=== PATIENT | female | born 1955 | race Caucasian/White ===

== ENCOUNTER 2018-05-11 00:24 | Observation (INO) | payer OTHER ==
[~2018-05-11] VITALS: Ht 160 cm; Wt 68.0 kg
[2018-05-11 01:24] LABS: ABSOLUTE BASOPHIL COUNT 0 /CUMM (0.0-0.2); ABSOLUTE EOSINOPHIL COUNT 0 /CUMM (0.0-0.7); ABSOLUTE GRANULOCYTE CT 13.2 /CUMM (1.4-6.5); ABSOLUTE LYMPH COUNT 0.9 /CUMM (1.2-3.4); ABSOLUTE MONOCYTE COUNT 0.5 /CUMM (0.10-0.60); BASOPHIL % 0.2 % (0.0-2.0); EOSINOPHIL % 0 % (0-5); MEAN CORPUSCULAR HGB 33.2 PG (27.0-31.0); MEAN CORPUSCULAR HGB CONC 34.7 G/DL (33.0-37.0); MEAN CORPUSCULAR VOLUME 95.6 FL (81.0-99.0); MEAN PLATELET VOLUME 8.1 FL (7.4-10.4); PLATELET COUNT 271 /CUMM (130-400); RBC DISTRIBUTION WIDTH 12.7 % (11.5-14.5); RED BLOOD CELL CT 4.19 /CUMM (4.20-5.40); WHITE BLOOD CELL COUNT 14.6 /CUMM (4.8-10.8)
[2018-05-11 01:32] LABS: GRANULOCYTE % 90.7 % (42.2-75.2)
--- NOTE | 2018-05-11 01:51 | ED GI/GU/ABDOMINAL COMPLAINT ---
History of Present Illness General Chief Complaint: Abdominal Pain/Flank Pain Stated Complaint: ? ABD PAIN X'S FEW HRS +N/V Source: patient, family, old records Exam Limitations: no limitations Vital Signs & Intake/Output Vital Signs & Intake/Output Vital Signs Date Time Temp Pulse Resp B/P B/P Pulse O2 O2 Flow FiO2 Mean Ox Delivery Rate 05/11 0531 98.5 85 18 119/72 96 Room Air 05/11 0100 98.6 05/11 0058 99 Room Air 05/11 0054 68 18 135/91 99 Room Air Allergies Coded Allergies: No Known Allergies (05/11/18) Triage Note: TRIAGE: PATIENT TO ER FROM HOME REPORTING 9/10 UPPER MIDDLE ABDOMEN PAIN "LIKE A MUSCLE STRAIN" S/P CARRYING GROCERIES APPROX 4PM, ATE DINNER AND REPORTS S/P DINNER +NAUSEA W/ VOMITTING X6. PATIENT SHAKY THROUGHOUT TRIAGE. TOOK TUMS AND PEPTO W/O RELIEF, "I THREW IT UP." PATIENT HX BREAST CA W/ R ARM RESTRICTION, RESTRICTED BAND APPLIED. Triage Nurses Notes Reviewed? yes LMP (ages 10-50): post menopausal ? n Is pt currently ? No Onset: Just prior to arrival Duration: hour(s):, constant, getting worse Timing: recent history Quality/Severity: cramping, severe, vomiting Location: epigastric Radiation: no radiation Activities at Onset: rest Prior Abdominal Problems: none Past Sexual History: Unobtainable at this time Modifying Factors: Worsens With: eating. Associated Symptoms: abdominal pain, loss of appetite, nausea/vomiting HPI: Several hours prior to admission patient complains of crampy epigastric pain moderate to severe associated with nausea vomiting nonradiating. She denies fever chills diarrhea chest pain cough shortness of breath headache dysuria rash bleeding Past History Travel History Traveled to [place] past 21 day No Medical History Any Pertinent Medical History? see below for history Neurological: NONE EENT: NONE Cardiovascular: hyperlipidemia Respiratory: NONE Gastrointestinal: NONE Hepatic: NONE Renal: NONE Musculoskeletal: LYME DISEASE Psychiatric: NONE Endocrine: NONE Blood Disorders: NONE Cancer(s): breast cancer, L ARM RESTRICTED Surgical History Surgical History: non-contributory Psychosocial History What is your primary language Latvian Tobacco Use: Refused to answer Family History Hx Contributory? No Review of Systems Review of Systems Constitutional: Reports: no symptoms. EENTM: Reports: no symptoms. Respiratory: Reports: no symptoms. Cardiovascular: Reports: no symptoms. GI: Reports: see HPI, abdominal pain, nausea, vomiting. Genitourinary: Reports: no symptoms. Musculoskeletal: Reports: no symptoms. Skin: Reports: no symptoms. Neurological/Psychological: Reports: no symptoms. Hematologic/Endocrine: Reports: no symptoms. Immunologic/Allergic: Reports: no symptoms. All Other Systems: Reviewed and Negative Physical Exam Physical Exam General Appearance: well developed/nourished, alert, awake, anxious, severe distress Head: atraumatic, normal appearance Eyes: Bilateral: normal appearance, PERRL, EOMI, normal inspection. Ears, Nose, Throat, Mouth: hearing grossly normal, moist mucous membrane Neck: normal inspection, supple, full range of motion, normal alignment, no midline tenderness Respiratory: normal breath sounds, chest non-tender, no respiratory distress, quiet respiration, lungs clear Cardiovascular: regular rate/rhythm, normal peripheral pulses, norml femoral pulses equa Peripheral Pulses: 4+ carotid (R), 4+ carotid (L) Gastrointestinal: normal bowel sounds, soft, no organomegaly, tenderness Back: normal inspection, normal range of motion Extremities: normal range of motion, no ligament instability Neurologic/Psych: no motor/sensory deficits, awake, alert, oriented x 3, normal gait, normal mood/affect, pickle processor II-XII nml as tested Skin: intact, normal color, warm/dry Core Measures ACS in differential dx? No Sepsis Present: No Sepsis Focused Exam Completed? No Progress Differential Diagnosis: appendicitis, biliary colic, cholecystitis, diverticulitis, gastritis Plan of Care: Orders Procedure Date/time Status CBC WITHOUT DIFFERENTIAL 05/12 0600 Active BASIC ELECTROLYTES PLUS BUN&CR 05/12 0600 Active Nothing by Mouth 05/11 B Active Pathway - chart 05/11 0611 Active Patient Data 05/11 0608 Active Code Status 05/11 0608 Active URINALYSIS 05/11 0105 Active TROPONIN LEVEL 05/11 0105 Complete LIPASE 05/11 0105 Complete COMPREHENSIVE METABOLIC PANEL 05/11 0105 Complete CBC WITHOUT DIFFERENTIAL 05/11 0105 Complete EKG 05/[address] in observation 05/11 UNK Active VTE Mechanical Prophylaxis 05/11 UNK Active Vital Signs 05/11 UNK Active Intake & Output 05/11 UNK Active Activity/Ambulation 05/11 UNK Active Current Medications Sig/Keena Start time Last Medication Dose Stop Time Status Admin Heparin Sodium 5,000 UNIT Q8 05/11 1400 UNVr (Porcine) Acetaminophen 650 MG Q6PRN PRN 05/11 0615 UNVr (Tylenol) Ampicillin Sodium/ 1,500 MG Q6 05/11 0615 UNVr 05/11 Sulbactam Sodium 0643 (Unasyn) Sodium Chloride 100 ML (Normal Saline 0.9%) Dextrose/Sodium 1,000 ML .Q8H 05/11 0615 UNVr 05/11 Chloride 0643 (D5-Normal Saline) Ondansetron HCl 4 MG Q6P PRN 05/11 0615 UNVr (Zofran) Laboratory Tests 05/11/18 0110: Anion Gap 17 H, Estimated GFR > 60, BUN/Creatinine Ratio 17.1, Glucose 134 H, Calcium 9.7, Total Bilirubin 0.6, AST 27, ALT 34, Alkaline Phosphatase 87, Troponin I < 0.01, Total Protein 7.2, Albumin 4.3, Globulin 2.9, Albumin/ Globulin Ratio 1.5, Lipase 58, CBC w Diff MAN DIFF ORDERED, RBC 4.19 L, MCV 95.6, MCH 33.2 H, MCHC 34.7, RDW 12.7, MPV 8.1, Gran % 90.7 H, Lymphocytes % 6.0 L, Monocytes % 3.1, Eosinophils % 0, Basophils % 0.2, Absolute Granulocytes 13.2 H, Segmented Neutrophils 87 H, Band Neutrophils 1, Absolute Lymphocytes 0.9 L, Lymphocytes 7 L, Monocytes 4, Absolute Monocytes 0.5, Absolute Eosinophils 0, Basophils 1, Absolute Basophils 0, Platelet Estimate ADEQUATE, Polychromasia 1+, Poikilocytosis 2+, Ovalocytes 1+, Stomatocytes 1+, Fld Total RBCs Counted 100 Diagnostic Imaging: Viewed by Me: CT Scan. Discussed w/RAD: CT Scan. Radiology Impression: 1. Fluid-filled, dilated appendix though without appreciable inflammatory change at this time. This could reflect a mucocele of the appendix, although in the proper clinical setting changes of an early appendicitis cannot be excluded. 2. Colonic diverticulosis. Initial ED EKG: normal axis, normal intervals, normal p-waves, normal QRS complex, normal sinus rhythm, no ST T wave changes Rhythm Strip: normal sinus rhythm Comments: D/W Dr. Friidman, surgical PA Departure Departure Disposition: STILL A PATIENT Condition: Stable Clinical Impression Primary Impression: Appendicitis Secondary Impressions: Abdominal pain Qualifiers: Abdominal location: right lower quadrant Qualified Code: R10.31 - Right lower quadrant pain Leukocytosis, unspecified Nausea and vomiting in adult patient Referrals: Emily WOOD,Michael Cortés (PCP/Family) Departure Forms: Customer Survey General Discharge Information Admission Note Spoke With: Kumar Vicente DO Documentation of Exam: Documentation of any treatments & extenuating circumstances including Concerns Regarding Discharge (functional status, medication knowledge or non-compliance, living conditions, etc.) that warrant an admission rather than observation: Nothing by mouth IV antibiotics IV fluids serial lab exam medication adjustment surgical evaluation and tingling care discharge planning
--- NOTE | 2018-05-11 02:59 | CT SCAN REPORT ---
EXAMINATION: CT ABDOMEN AND PELVIS WITH CONTRAST CLINICAL INFORMATION: Epigastric pain, nausea/vomiting COMPARISON: None TECHNIQUE: Multidetector volumetric imaging was performed of the abdomen and pelvis following IV administration of 95 mL of Optiray 320 intravenous contrast. Sagittal and coronal reformatted images were obtained on the technologist's workstation. DLP: 269.58 mGy-cm FINDINGS: LUNG BASES: The visualized lung bases are unremarkable. LIVER, GALLBLADDER, AND BILIARY TREE: The liver is normal in size, shape, and attenuation. No focal hepatic lesion or biliary ductal dilatation is present. The gallbladder is unremarkable with no evidence of radiopaque gallstones, gallbladder wall thickening, or obvious pericholecystic inflammatory changes. PANCREAS: Unremarkable. SPLEEN: Unremarkable. ADRENAL GLANDS: Unremarkable. KIDNEYS AND URETERS: The kidneys are normal in size, shape, and attenuation. No hydronephrosis, hydroureter, or calculi seen. No perinephric stranding. BLADDER: Unremarkable. GASTROINTESTINAL TRACT: There is scattered colonic diverticulosis without evidence of diverticulitis. Assessment for wall thickening in some segments of the colon is limited due to luminal collapse, though no significant pericolonic stranding is seen to strongly suggest a colitis. No evidence of bowel obstruction. The appendix is fluid-filled and dilated to 0.9 cm in diameter in the anterior right lower quadrant as seen on axial image 56/89 and coronal image 33. No significant associated periappendiceal inflammation. No free fluid or free air is seen. ABDOMINAL WALL: There is a small lobulated region of fluid attenuation in the left groin, which may reflect a small amount of fluid within a femoral hernia. LYMPH NODES: Normal. VASCULAR: Unremarkable. PELVIC VISCERA: Unremarkable. OSSEOUS STRUCTURES: Mild scattered degenerative endplate changes are present spine. IMPRESSION: 1. Fluid-filled, dilated appendix though without appreciable inflammatory change at this time. This could reflect a mucocele of the appendix, although in the proper clinical setting changes of an early appendicitis cannot be excluded. 2. Colonic diverticulosis.
--- NOTE | 2018-05-11 06:13 | History & Physical Pre-Op ---
See Addendum General Information and HPI History of Present Illness: 62F presents to ED with abd pain/n/v that began last evening around 6pm. She went out to eat for sinner though did not eat much due to lack of appetite and abd discomfort. Pain started in epigastric region, but now is feeling some discomfort in rlq. +n/v at home, none in ED. Denies fever/chills, no cp/sob. 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 Allergies/Medications Allergies: Coded Allergies: No Known Allergies (05/11/18) Past History Medical History Neurological: NONE EENT: NONE Cardiovascular: hyperlipidemia Respiratory: NONE Gastrointestinal: NONE Hepatic: NONE Renal: NONE Musculoskeletal: LYME DISEASE Psychiatric: NONE Endocrine: NONE Blood Disorders: NONE Cancer(s): breast cancer (sp r lumpectomy, sn bx, RT) Surgical History Pertinent Surgical History: r lumpectomy. 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 procedure Past Family/Social History Psychosocial History Smoking Status: Never Smoked Illicit Drug Use: denies illicit drug use Exam & Diagnostic Data Last 24 Hrs of Vital Signs/I&O Vital Signs Date Time Temp Pulse Resp B/P B/P Pulse O2 O2 Flow FiO2 Mean Ox Delivery Rate 05/11 0531 98.5 85 18 119/72 96 Room Air 05/11 0100 98.6 05/11 0058 99 Room Air 05/11 0054 68 18 135/91 99 Room Air Intake & Output 05/11 0800 05/11 0000 05/10 1600 Intake Total Output Total Balance Patient 148 lb Weight Weight Reported by Patient Measurement Method Physical Exam: gen- nad card-s1s2 rrr pulm- ctab abd- ttp rlq, ttp epigastric, soft, nd, no r/g, +bs ext- calves soft nt Last 24 Hrs of Labs/Jack: Laboratory Tests 05/11/18 0110: Anion Gap 17 H, Estimated GFR > 60, BUN/Creatinine Ratio 17.1, Glucose 134 H, Calcium 9.7, Total Bilirubin 0.6, AST 27, ALT 34, Alkaline Phosphatase 87, Troponin I < 0.01, Total Protein 7.2, Albumin 4.3, Globulin 2.9, Albumin/ Globulin Ratio 1.5, Lipase 58, CBC w Diff MAN DIFF ORDERED, RBC 4.19 L, MCV 95.6, MCH 33.2 H, MCHC 34.7, RDW 12.7, MPV 8.1, Gran % 90.7 H, Lymphocytes % 6.0 L, Monocytes % 3.1, Eosinophils % 0, Basophils % 0.2, Absolute Granulocytes 13.2 H, Segmented Neutrophils 87 H, Band Neutrophils 1, Absolute Lymphocytes 0.9 L, Lymphocytes 7 L, Monocytes 4, Absolute Monocytes 0.5, Absolute Eosinophils 0, Basophils 1, Absolute Basophils 0, Platelet Estimate ADEQUATE, Polychromasia 1+, Poikilocytosis 2+, Ovalocytes 1+, Stomatocytes 1+, Fld Total RBCs Counted 100 Assessment/Plan Assessment/Plan: A- 62F with likely early appendicitis, wbc 14, otherwise stable. P- unasyn npo home meds dvt ppx dr quinn to see As Ranked By This Provider Problem List: 1. Appendicitis
[2018-05-11] MEDS ORDERED: ATORVASTATIN CA10 M1 PO (08:13)
[2018-05-11] MEDS ORDERED: VITAMIN B-121000 MC3 PO (08:14)
[2018-05-11] MEDS ORDERED: CALCIUM 500 +1 EAC5 PO (08:14)
[2018-05-11] MEDS ORDERED: DAILY MULTIPLE1 EACH PO (08:15)
[2018-05-11 09:34] VITALS: BP 120/64
[2018-05-11 14:13] VITALS: BP 110/54
--- NOTE | 2018-05-11 16:03 | Operative Report ---
Operative/Inv Procedure Report Surgery Date: 05/11/18 Name of Procedure: Laparoscopic appendectomy Pre-Operative Diagnosis: Acute appendicitis Post-Operative Diagnosis: Same Estimated Blood Loss: less than 50ml Surgeon/Line Construction Supervisor: Kumar Vicente DO Anesthesia: general endotracheal tube IV Fluids: 500 cc Drains: None Specimens: Appendix Complications: None Condition: Stable Operative Indication: This is a 62-year-old female presented to the emergency room with abdominal pain. After appropriate workup was completed the patient was diagnosed with appendicitis. A laparoscopic possible open appendectomy was discussed in detail. All risks including but not limited to bleeding, infection, and injury to surrounding bowel were discussed in detail. The patient understood everything and decided to proceed. Operative/Procedure Note Note: The patient was brought to the operating room and placed on the table in supine position. Venodyne stockings were placed and adequate general endotracheal anesthesia was obtained. The patient was prepped and draped in standard surgical fashion. Began the procedure by making a 2 cm transverse incision in the infraumbilical crease. Incision was carried down to the fascia. Once the fascia was clearly visualized it was picked up between 2 Scout clamps and divided in the midline. Once we entered the peritoneum 2 stay 0 Vicryl sutures were placed on each side and a 12 mm blunt port was inserted. The abdominal cavity was insufflated to 15 mmHg. And a 10 mm 30 laparoscope was introduced. Upon initial examination no obvious gross pathology was seen, some hyperemia and inflammatory reaction was noted in the right lower quadrant. Accessory trocars were placed, both 5 mm, one in the left lower quadrant and one suprapubic. Ascending colon was identified and traced proximally, terminal ileum was identified, and we did note the appendix anteriorly. The base of the appendix was identified and appeared healthy. Distal appendix was ok as well but the midportion of the appendix was dilated and suppurative. Using blunt dissection and harmonic scalpel the appendix was carefully dissected away from surrounding structures. Once the appendix was away from the omentum and the sidewall the mesoappendix was divided using Harmonic scalpel maintaining hemostasis until the appendiceal base was clearly visualized and freely up in the air. At that point we switched to a 5 mm laparoscope and a 45 mm parry Endo SUYAPA load was inserted and the base was transected. The appendix was placed in an Endobag and removed through the umbilical trocar site. The abdominal cavity was reinsufflated and we switched back to a 10 mm laparoscope. Staple line was examined and no bleeding was noted. No other abnormalities were noted. The pelvis and the right lower quadrant were irrigated until clear. All ports were removed under direct visualization, no obvious bleeding was noted. The umbilical trocar site was closed using 0 Vicryl suture. The skin was closed using 4-0 Monocryl. Steri-Strips and dressings were placed. The patient was successfully extubated and transferred to the recovery room in stable condition. The patient tolerated procedure well with no complications. Findings: Acute suppurative mid portion of the appendix, no perforation
[2018-05-11] MEDS ORDERED: PERCOCET 5-3251 EACH PO (16:14)
--- NOTE | 2018-05-11 16:18 | Patient Discharge Instructions ---
Discharge Instructions General Discharge Information You were seen/treated for: Acute appendicitis You had these procedures: Laparoscopic appendectomy Watch for these problems: Worsening abdominal pain, nausea, vomiting, fever, flulike illness, redness or drainage around the wounds No bath, but you may shower: Yes Other wound care: Keep the dressings in place for the next 3 days. You may replace it with Band- Aids. You may shower, no bath. Steri-Strips stay on until they fall off Special Instructions: Take Percocet as needed for pain. You may take Motrin or Advil as well. Do not take any Tylenol if you are taking Percocet however you may take Tylenol instead of Percocet for pain Diet Continue normal diet: Yes Recommended Diet: Regular Activity Full Activity/No Limits: No Activity Self Limited: Yes Pounds, do NOT lift more than: 10 Acute Coronary Syndrome Inclusion Criteria At DC or during hospital stay patient has or had the following: ACS DIAGNOSIS No Discharge Core Measures Meds if any: Prescribed or Continued at Discharge Meds if any: NOT Prescribed or Continued at Discharge Congestive Heart Failure Inclusion Criteria At DC or during hospital stay patient has or had the following: CHF DIAGNOSIS No Discharge Core Measures Meds if any: Prescribed or Continued at Discharge Meds if any: NOT Prescribed or Continued at Discharge Cerebrovascular accident Inclusion Criteria At DC or during hospital stay patient has or had the following: CVA/TIA Diagnosis No Discharge Core Measures Meds if any: Prescribed or Continued at Discharge Meds if any: NOT Prescribed or Continued at Discharge Venous thromboembolism Inclusion Criteria VTE Diagnosis No VTE Type NONE VTE Confirmed by (Test) NONE Discharge Core Measures - Per Current guidelines, there needs to be overlap - treatment for the first 5 days of Warfarin therapy. - If discharged on Warfarin prior to 5 days of - overlap therapy, the patient will need to be - assessed for post discharge needs including - *Post discharge parental anticoagulation - *Warfarin and/or parental anticoagulation education - *Follow up date to check INR post discharge At least 5 days overlap therapy as Inpatient No Meds if any: Prescribed or Continued at Discharge Note: Overlap Therapy is Warfarin and Anticoagulant Meds if any: NOT Prescribed or Continued at Discharge
--- NOTE | 2018-05-11 16:20 | Surg Short-stay <48hrs Dis Sum ---
Visit Information Visit Dates Admission Date: 05/11/18 Discharge Date: 05/11/18 Surgical Short Stay DC Summary Admission Diagnosis: Acute appendicitis Final Diagnosis: Acute appendicitis status post laparoscopic appendectomy Procedure(s): Laparoscopic appendectomy Summary/Significant Findings: Patient was admitted for acute appendicitis to the emergency room after was noted on CT scan of the abdomen and pelvis. She received IV antibiotics. She underwent a laparoscopic appendectomy later that same day which went without complications. Postoperatively she tolerated her diet and pain was controlled and she was discharged in stable condition Condition at Discharge: Good Discharge Disposition: home or self care Discharge instructions provided to patient/family: Yes Post discharge follow-up plan: Follow-up with Dr. Vicente in approximately 10 days, please call to make appointment. No lifting greater than 10 pounds.
[2018-05-11 18:14] VITALS: BP 120/70
== END 2018-05-11 20:22 ==
LOC: ERH 00:24 → ERHI 06:08 → ENRESERV 08:36 → EDTRNSPT 09:10 → ENTRNSPT 09:10 → EDTRNSPT 09:14 → EDTRNSPTSTS 09:14 → ERH 09:17 → EDBEDREQSVC 09:25 → 2NB 09:31 → CMPTRNSPT 09:39 → ENTRNSPT 17:27 → EDTRNSPT 17:48 → EDTRNSPTSTS 17:48 → CMPTRNSPT 18:06 → ENTRNSPT 20:01 → EDTRNSPTSTS 20:02 → EDTRNSPT 20:02 → CMPTRNSPT 20:17 → 2NB 20:22
PROVIDERS: Emergency Medicine
DX: K35.80 Unspecified acute appendicitis (principal); Z85.3 Personal history of malignant neoplasm of breast
CPT/HCPCS: 74177; 93005; 93010; 96365; 96374; 96375; 96376; G0378; J0131; J0690; J1644; J2405; J2765